=== PATIENT | female | born 1995 | race Caucasian/White ===

== ENCOUNTER 2016-07-16 22:22 | Emergency (ER) | payer BC, OTHER ==
[2016-07-16 20:21] LABS: INFLUENZA A NEG (NEG); INFLUENZA B NEG (NEG)
[~2016-07-16 22:22] MED LIST: PRENATAL1 TA1 PO
== END 2016-07-16 22:35 | disposition home or self-care (01) ==
LOC: CED 22:22
PROVIDERS: Emergency Medicine
DX: B34.9 Viral infection, unspecified (principal)
CPT/HCPCS: 87651; 87804; 99283

== ENCOUNTER 2016-08-05 19:36 | Emergency (ER) | payer BC, OTHER ==
--- NOTE | ~2016-08-05 | CR170 ---
[facility] A Service of [facility] & [facility] RADIOLOGY TEXT RESULTS PATIENT: DOM BOONE LOCATION: CFTX : [birth year] UNIT #: [id number] AGE: [address]: Elvin Vega SEX: F ORDER DR: [id number] [facility] [address] [place], [place] [address] [id number] E MR#: [id number] Acc #: [id number] NAME: DOM BOONE : 1995 SEX: F STUDY DATE/TIME: 08/05/2016 19:26 UNIT: [facility] ROOM: STUDY DESCRIPTION: CR Knee 2 Views Rt Attending Physician: Elvin Vega P.A.-C. Ordering Physician: Elvin Vega P.A.-C. Primary Care Physician: Primary Care Physician No MEDICAL IMAGING REPORT This report is preliminary unless electronic signature is present EXAM Right knee INDICATIONS Right knee pain. FINDINGS 2 views of the right knee without comparison. There is no fracture or dislocation. Alignment is anatomic. No effusion. IMPRESSION Normal right knee. Dictated by... Trae Baugh M.D. THIS IS AN ELECTRONICALLY VERIFIED REPORT Trae Baugh M.D. at 08/06/2016 3:24 PM NAV/davin TD: 08/05/2016 23:18 JOB #: [id number] MEDICAL IMAGING REPORT Page 1 of 1 COPY
== END 2016-08-05 20:06 | disposition home or self-care (01) ==
LOC: CFTX 19:36
DX: M76.9 Unspecified enthesopathy, lower limb, excluding foot (principal); Z79.899 Other long term (current) drug therapy
CPT/HCPCS: 73560; 99283